=== PATIENT | male | born 1960 | race Caucasian/White ===

== ENCOUNTER 2023-04-19 11:38 | Emergency (ER) | payer OTHER ==
[~2023-04-19] VITALS: Ht 182.9 cm; Wt 106.6 kg
--- NOTE | 2023-04-19 11:38 | NUR ---
([id number]) METAL BONDING CRIB ATTENDANT'S CALLED TO ED FOR CARDIOPULMONARY ARREST
--- NOTE | 2023-04-19 11:38 | NUR ---
([id number]) PATIENT FROM [employer] [facility] WITH MARGARITA CHEST COMPRESSOR ON AND FUNCTIONING WELL; PHYSICIAN IN PRIVATE PRACTICE'S RESUMED AMBU BAG TO MASK AT 15 LPM
--- NOTE | 2023-04-19 11:38 | NUR ---
USING A GLIDESCOPE PATIENT SUCCESSFULLY BY DR. ADRIAN JAIMES WITH ENDOTRACHEAL TUBE (ETT) #8.0 SECURED AT 24cm TEETH/GUMLINE WITH AN ANCHOR FAST ETT COMFIRMATION VIA ETCO2 COLOR CHANGE TO YELLOW GOOD CHEST RISE
--- NOTE | 2023-04-19 11:38 | NUR ---
1133: PT BIB [facility] IN CARDIAC ARREST, CPR IN PROGRESS BEING BAGGED BVM. PT FOUND DOWN BY CAR UNKNOWN DOWNTIME ASYSTOLE ON SCENE, MEDICS PROVIDED ACLS CARE APPROX 20 MIN FLOOR COVERING LAYER. ON ARRIVAL PT REMAINS IN ASYSTOLE. PLACED ON COMBO PADS AND MONITOR. IO NOTED TO RIGHT LEG.
--- NOTE | 2023-04-19 11:38 | NUR ---
PT INTUBATED TUBE 8.024 LIP. +COLOR CHANGE BILATERAL BREATH SOUNDS
[2023-04-19 11:39] VITALS: BP 0/0; PULSE 0; RESP 0
[2023-04-19] MEDS ORDERED: SODIUM BICARBONATE 8.4% PFS 50 MEQ/50 ML SYR IVP ONE (11:42)
--- NOTE | 2023-04-19 11:43 | NUR ---
PT PRONOUNCED BY DR CAMPBELL AT [phone]
--- NOTE | 2023-04-19 12:00 | NUR ---
[facility] CALLED REFERENCE NUMBER [phone]
--- NOTE | 2023-04-19 12:25 | NUR ---
SPOKE TO [facility] PT IS AMBOY PT, DR CONWAY IS [facility] STATES INFORMATION IS BEING SENT TO [facility].
--- NOTE | 2023-04-19 12:27 | NUR ---
SPOKE WITH CORONERS OFFICE, STATES GRAPHICS EDIT TECHNICIAN WILL CALL BACK.
--- NOTE | 2023-04-19 13:20 | NUR ---
SPECIAL EDUCATION MATH TEACHER OFFICE CALLED TRANSFER TO [facility]
--- NOTE | 2023-04-19 13:34 | NUR ---
[facility] - UPDATED ON PATIENT
--- NOTE | 2023-04-19 13:59 | NUR ---
SPOKE TO SPORTS DEVELOPMENT OFFICER, PT WILL BE A CORONERS CASE
--- NOTE | 2023-04-19 13:59 | NUR ---
PUBLIC ADDRESS SYSTEMS MECHANIC
--- NOTE | 2023-04-19 14:36 | NUR ---
[facility] - UPDATE ON FAMILY AT BEDSIDE
--- NOTE | 2023-04-19 15:11 | NUR ---
RETAIL ASSISTANT STORE MANAGER TRANSPORT HERE FOR BODY SHOWROOM CONSULTANT
== END 2023-04-19 11:43 ==
LOC: MED 11:38
DX: I46.9 Cardiac arrest, cause unspecified (principal)
CPT/HCPCS: 31500; 92950; 99291